=== PATIENT | female | born 1955 | race Caucasian/White ===

== ENCOUNTER 2016-12-07 11:38 | Emergency (ER) | payer MEDICARE, MEDICAID ==
[2016-12-07 11:46] VITALS: BP 150/96
[2016-12-07] MEDS ORDERED: Albuterol/Ipratropium NEB.SOL* Albuterol 2.5 MG/Ipratropium 0.5 MG 3 ML INH ONE (12:06)
[2016-12-07] MEDS ORDERED: predniSONE TAB* 20 MG PO ONE (12:06)
--- NOTE | 2016-12-07 12:07 | UC ---
Respiratory Complaint HPI - HPI Summary HPI Summary: increase sob over the past 2 weeks has ran out of Albuterol and is between doctors right now - History of Current Complaint Chief Complaint: UCRespiratory Stated Complaint: CHRONIC BRONCHITIS Time Seen by Provider: 12/07/16 12:00 Hx Obtained From: Patient ?: No Onset/Duration: Gradual Onset, Worse Since - over the past 2 weeks Timing: Constant Severity Initially: Moderate Severity Currently: Moderate Pain Intensity: 5 Pain Scale Used: 0-10 Numeric Character: Cough: Nonproductive Aggravating Factors: Exertion, Deep Breaths, Recumbent Position Alleviating Factors: Nothing Associated Signs And Symptoms: Positive: Wheezing, URI - Allergies/Home Medications Allergies/Adverse Reactions: Allergies Allergy/AdvReac Type Severity Reaction Status Date / Time Sulfa Antibiotics Allergy unk Verified 11/19/14 10:51 Tetracycline Allergy GI Upset Verified 11/16/15 09:34 opiates Allergy Vomiting Uncoded 11/19/14 10:51 PMH/Surg Hx/FS Hx/Imm Hx Previously Healthy: No Respiratory History: COPD, Bronchitis - Surgical History Surgical History: Yes Surgery Procedure, Year, and Place: cysts removal from left breast. RIGHT leg fracture and devon placement. tonsilectomy, - Family History Known Family History: Positive: None - Social History Occupation: Employed Part-time - cashier receptionist Lives: With Family Alcohol Use: Rare Substance Use Type: None Smoking Status (MU): Heavy Every Day Tobacco Smoker Type: Cigarettes Amount Used/How Often: 1/2-3/4 pack daily Have You Smoked in the Last Year: Yes Cessation Counseling: Counseled 3+Min - 10 Min Review of Systems Constitutional: Negative Skin: Negative Eyes: Negative ENT: Negative Respiratory: Shortness Of Breath, Cough Cardiovascular: Negative Gastrointestinal: Negative Genitourinary: Negative Motor: Negative Neurovascular: Negative Musculoskeletal: Negative Neurological: Negative Psychological: Negative Is Patient Immunocompromised?: No All Other Systems Reviewed And Are Negative: Yes Physical Exam Triage Information Reviewed: Yes Appearance: No Pain Distress, Ill-Appearing - acute on chronic illness, Thin Vital Signs: Initial Vital Signs Temp 99.6 F 12/07/16 11:43 Pulse 84 12/07/16 11:43 Resp 22 12/07/16 11:43 BP 150/96 12/07/16 11:43 Pulse Ox 100 12/07/16 11:43 Vital Signs Reviewed: Yes Eye Exam: Normal Eyes: Positive: Conjunctiva Clear ENT Exam: Normal ENT: Positive: Normal ENT inspection, Hearing grossly normal, Pharynx normal, TMs normal. Negative: Nasal congestion, Nasal drainage, Tonsillar swelling, Tonsillar exudate, Trismus, Muffled/hoarse voice Dental Exam: Normal Neck exam: Normal Neck: Positive: Supple, Nontender, No Lymphadenopathy Respiratory Exam: Normal Respiratory: Positive: Chest non-tender, No accessory muscle use, Decreased breath sounds Cardiovascular Exam: Normal Cardiovascular: Positive: RRR, No Murmur, Pulses Normal, Brisk Capillary Refill Musculoskeletal Exam: Normal Musculoskeletal: Positive: Strength Intact, ROM Intact, No Edema Neurological Exam: Normal Neurological: Positive: Alert, Muscle Tone Normal Psychological Exam: Normal Skin Exam: Normal UC Diagnostic Evaluation - Laboratory O2 Sat by Pulse Oximetry: 100 Re-Evaluation - Re-Evaluation First Eval Change: Improved - feels better increased air movement-- Respiratory Course/Dx - Course Course Of Treatment: albuterol, prednisone, nicotine cesassation information, bp follow up with pcp - Differential Dx/Diagnosis Differential Diagnosis/HQI/PQRI: Bronchitis, Exacerbation Of COPD, Lower Resp Infection, Sinusitis Provider Diagnoses: Acute exacebation of chronic bronchitis, nicotine dependent , high blood pressure without diagnosis of hypertension Discharge - Discharge Plan Condition: Stable Disposition: HOME Prescriptions: Albuterol HFA INHALER* [Ventolin HFA Inhaler*] 2 puff INH Q4H PRN #1 mdi PRN Reason: cough/wheeze/chest congestion predniSONE TAB* [Deltasone TAB*] 10 mg PO DAILY #30 tab Patient Education Materials: Nicotine (By breathing), How to Use a Metered- Dose Inhaler (ED), Chronic Bronchitis (ED), Hypertension (ED) Referrals: [facility] [Outside] - 2 Weeks
== END 2016-12-07 12:52 | disposition home or self-care (01) ==
LOC: UCEAST 11:38
DX: J20.9 Acute bronchitis, unspecified (principal); Z88.2 Allergy status to sulfonamides; F17.210 Nicotine dependence, cigarettes, uncomplicated; R03.0 Elevated blood-pressure reading, without diagnosis of hypertension
CPT/HCPCS: 99212; A9270-GY; G0463; J7512

== ENCOUNTER 2017-05-21 09:54 | Emergency (ER) | payer MEDICARE, MEDICAID ==
[2017-05-21 10:11] VITALS: BP 159/77
--- NOTE | 2017-05-21 10:55 | RAD ---
HISTORY: Finger injury COMPARISONS: None VIEWS: 4, Frontal, lateral, and oblique views of the right hand FINDINGS: BONE DENSITY: Normal. BONES: There is a comminuted slightly angulated nondisplaced fracture of the proximal phalanx of the fourth digit. JOINTS: There is advanced osteoarthritis of the first CMC joint. ALIGNMENT: There is no dislocation. SOFT TISSUES: Unremarkable. OTHER FINDINGS: None. IMPRESSION: 1. COMMINUTED FRACTURE OF THE PROXIMAL PHALANX OF THE FOURTH DIGIT. 2. ADVANCED OSTEOARTHRITIS OF THE FIRST CMC JOINT.
--- NOTE | 2017-05-25 15:21 | UC ---
Velia Montoya Gabriel, scribed for Deanna Lemos DO on 05/21/17 at 1031 . Hand/Wrist HPI - HPI Summary HPI Summary: This patient is a 62 year old F presenting to [facility] with a chief complaint of right ring finger injury. Pt slipped on ice and landed on her right hand. The patient rates the pain 6/10 in severity. Symptoms aggravated by movement. Patient reports swelling and ecchymosis Patient denies elbow pain, wrist pain, head trauma, and LOC. - History Of Current Complaint Chief Complaint: UCUpperExtremity Stated Complaint: FINGER INJURY Time Seen by Provider: 05/21/17 10:12 Hx Obtained From: Patient Onset/Duration: Still Present Severity Initially: Moderate Severity Currently: Moderate Pain Intensity: 6 Pain Scale Used: 0-10 Numeric Aggravating Factor(s): Movement Associated Signs And Symptoms: Positive: Swelling, Bruising - Allergies/Home Medications Allergies/Adverse Reactions: Allergies Allergy/AdvReac Type Severity Reaction Status Date / Time Sulfa (Sulfonamide Allergy Rash Verified 05/21/17 10:08 Antibiotics) tetracycline Allergy Rash Verified 05/21/17 10:08 opiates Allergy Vomiting Uncoded 11/19/14 10:51 PMH/Surg Hx/FS Hx/Imm Hx Other History Of: Negative For: Hepatitis C, Anticoagulant Therapy - Surgical History Surgical History: Yes Surgery Procedure, Year, and Place: cysts removal from left breast. RIGHT leg fracture and devon placement. tonsilectomy, - Family History Known Family History: Positive: Cardiac Disease, Hypertension - Social History Alcohol Use: Rare Substance Use Type: None Smoking Status (MU): Heavy Every Day Tobacco Smoker Type: Cigarettes Amount Used/How Often: 1/2-3/4 pack daily Have You Smoked in the Last Year: Yes Review of Systems Musculoskeletal: Other: - pain at right hand Neurological: Negative - LOC All Other Systems Reviewed And Are Negative: Yes Physical Exam - Summary Physical Exam Summary: Appearance: Well-Appearing, No Pain Distress, Well-Nourished Eyes: conjunctiva clear, no discharge ENT: Hearing grossly normal, no muffled/hoarse voice. Hearing grossly normal, normal voice). Neck: Normal, Supple Respiratory/Lung Sounds: Lungs clear, Normal breath sounds, No respiratory distress, No accessory muscle use Cardiovascular: RRR, No murmur Abdomen (if she checks): Nontender, Soft, no guarding, not distended Bowel Sounds (if she checks): Present Musculoskeletal: there is swelling and bruising over the ulnar side of the patients hand with ROM in 4th finger that is TTP. Neurological: Alert, muscle tone normal Psychiatric: Normal, age appropriate behavior Skin: Normal, Warm, Dry, Normal color Triage Information Reviewed: Yes Vital Signs: Initial Vital Signs Temp 99 F 05/21/17 10:09 Pulse 87 05/21/17 10:09 Resp 16 05/21/17 10:09 BP 159/77 05/21/17 10:09 Pulse Ox 100 05/21/17 10:09 Vital Signs Reviewed: Yes Diagnostics - Radiology hand xray Radiology Interpretation Completed By: Radiologist - 1. COMMINUTED FRACTURE OF THE PROXIMAL PHALANX OF THE FOURTH DIGIT. 2. ADVANCED OSTEOARTHRITIS OF THE FIRST CMC JOINT. Dr. Lemos has reviewed this report. Hand/Wrist Course/Dx - Course Course Of Treatment: Hand Xray reveals, 1. COMMINUTED FRACTURE OF THE PROXIMAL PHALANX OF THE FOURTH DIGIT. 2. ADVANCED OSTEOARTHRITIS OF THE FIRST CMC JOINT. Patient will be discharged and follow up from PCP. The patient is agreeable with this plan. Medications reviewed. Allergies reviewed. High blood pressure noted. The patient has been encouraged to quit smoking. - Differential Dx/Diagnosis Provider Diagnoses: Elevated blood pressure without diagnosis of hypertension and proximal finger fracture Discharge - Discharge Plan Condition: Stable Disposition: HOME Referrals: No Primary Care Phys,NOPCP [Primary Care Provider] - Additional Instructions: Your blood pressure was elevated at this visit. That does not mean you have hypertension, it is probably due to your current condition. Please follow up with your primary care provider. The documentation as recorded by the Velia luna Gabriel accurately reflects the service I personally performed and the decisions made by , Deanna Lemos DO.
== END 2017-05-21 12:05 | disposition home or self-care (01) ==
LOC: UCEAST 09:54
DX: S62.644A Nondisplaced fracture of proximal phalanx of right ring finger, initial encounter for closed fracture (principal); W00.0XXA Fall on same level due to ice and snow, initial encounter; Y93.9 Activity, unspecified; Y92.9 Unspecified place or not applicable; M18.11 Unilateral primary osteoarthritis of first carpometacarpal joint, right hand; Z88.1 Allergy status to other antibiotic agents; Z88.5 Allergy status to narcotic agent; Z88.2 Allergy status to sulfonamides; F17.210 Nicotine dependence, cigarettes, uncomplicated
CPT/HCPCS: 99211; G0463

== ENCOUNTER 2017-05-26 09:09 | Day surgery (SDC) | payer MEDICARE, MEDICAID ==
--- NOTE | 2017-05-22 10:31 | HP ---
PREOPERATIVE HISTORY AND PHYSICAL: DATE OF ADMISSION/SURGERY: 05/26/17 [facility] DATE OF OFFICE VISIT/ENCOUNTER: 05/21/17 ATTENDING SURGEON: Cyn De La Cruz MD * (DICTATED BY WOO HERBERT) PROCEDURE: Right ring finger phalanx closed reduction, percutaneous fixation. CHIEF COMPLAINT: Right ring finger fracture. HISTORY OF PRESENT ILLNESS: This is a 62-year-old female, who sustained injury to her right ring finger when she slipped on the ice on 05/20/17. She went to [facility] the next day because of the bruising and the deformity of the ring finger. She had x-rays taken and was referred to Dr. De La Cruz for further evaluation. She has been using Tylenol PM for pain control. She is allergic to NARCOTICS. She denies any other injury. She denies any associated numbness or tingling. After review of x-rays and evaluation by Dr. De La Cruz, the patient has consented to proceed with surgical intervention at this time in the form of a right ring finger phalanx closed reduction, percutaneous fixation. PAST MEDICAL HISTORY: History of chronic bronchitis. PAST SURGICAL HISTORY: 1. Right femur intramedullary nailing in 1991. 2. . 3. Tonsillectomy. 4. Right foot surgery as a child. MEDICATIONS: Tylenol PM. ALLERGIES: OPIATES cause violent vomiting; TETRACYCLINE; SULFA ANTIBIOTICS, reaction unknown. FAMILY MEDICAL HISTORY: Heart disease and cancer. SOCIAL HISTORY: The patient is a part-time food service cashier at the [employer] She is a current smoker. She reports smoking less than a pack per day and has done so for the past 40 years. She denies illicit drug use and does drink alcohol on occasion. REVIEW OF SYSTEMS: General: Negative for fevers, chills, or night sweats. No known anesthesia problems. HEENT: Negative for headache, lightheadedness, or syncopal episodes. Integumentary: Negative for abrasions, lesions, or open wounds. Cardiothoracic: Negative for hypertension, chest pain, palpitations, or edema. Pulmonary: Negative for shortness of breath with exertion, chronic cough, COPD. GI: Negative for nausea, vomiting, diarrhea, constipation, and GERD. : Negative for nocturia, urinary frequency, urgency, history of UTIs, and kidney problems. Musculoskeletal: Positive for current complaint. Negative for chronic or intermittent back pain. Neurological: Negative for paresthesia, numbness, history of seizure, stroke, or epilepsy. Endocrine: Negative for diabetes and thyroid issues. Hematologic: Negative for easy bruising, anemia, excessive bleeding, or history of DVT. Infectious Disease: Negative for history of MRSA, hepatitis C, HIV. PHYSICAL EXAMINATION GENERAL: Well-developed, well-nourished, 62-year-old female in no acute distress. VITAL SIGNS: Height 5 feet 8 inches, weight 125 pounds, pulse rate 83, blood pressure 140/84. HEENT: Normocephalic, atraumatic. Pupils are equal, round, and reactive to light and accommodation. Extraocular movements are intact. NECK: Supple. No palpable lymph nodes. Throat is clear. PULMONARY: Lungs are clear to auscultation bilaterally. No wheezes, rales, or rhonchi. CARDIOVASCULAR: Regular rate and rhythm, S1 and S2. No murmurs, rubs, or gallops. No edema. ABDOMEN: Positive bowel sounds, soft, nontender. NEUROLOGIC: Alert and oriented x3. Cranial nerves II through XII are intact, sensation is intact to light touch. MUSCULOSKELETAL: On exam of her right hand, she has marked ecchymosis and deformity of the ring finger. There is also swelling along the ring finger and into the hand. The ecchymosis in on both the volar and dorsal aspects. She has ability to extend the finger, but when she flexes, there is a rotational deformity. Skin is intact and neurovascular function is intact. IMAGING STUDIES: X-rays, AP, lateral, and oblique, of the right ring finger show a comminuted intraarticular fracture at the base of the proximal phalanx. IMPRESSION: Right ring finger proximal phalanx fracture. PLAN: Right ring finger phalanx closed reduction, percutaneous fixation, that is what the patient is scheduled to undergo with Dr. De La Cruz on 05/26/17. She will return to the office 10 days postop for followup and suture removal. The patient plans to use [id number] medications for postoperative pain management as she is allergic to OPIATES. WOO HERBERT [id number]/[facility] #: [id number] TEJA
[~2017-05-26 09:09] MED LIST: Acetaminophen IV 1GM/100ML * 1,000 MG/100 ML VIAL IVPB ONE; Buffered Lidocaine 0.9% SYRIN* 5 ML/SYR SYRINGE INTRADERM ONE; DiMENhydriNATE IV* 50 MG/ML VIAL IV PUSH PRN; Famotidine IV* 10 MG/ML 2 ML (20 mg) IV ONE; Famotidine IV* 10 MG/ML 2 ML (20 mg) ONE; Naloxone* 0.4 MG/ML 1 ML VIAL IV PRN; PROCHLORPERAZINE INJ 5 MG/ML 2 ML VIAL IV PRN; Scopolamine 1.5 mg* PATCH ONE; Scopolamine 1.5 mg* PATCH TRANSDERM ONE
[2017-05-26] MEDS ORDERED: fentaNYL* 50 MCG/ML 2 ML VIAL (100 MCG VIAL) ONE (09:30)
[2017-05-26] MEDS ORDERED: Midazolam* 1 MG/ML 5 ML VIAL (5 MG) ONE (09:31)
[2017-05-26] MEDS ORDERED: Lidocaine 1% INJ* 10 MG/ML 30 ML SDV ONE (09:42)
[2017-05-26] MEDS ORDERED: ceFAZolin 2 GM in 100 MLS NS (*) BAG IVPB ONE (09:43)
[2017-05-26] MEDS ORDERED: Bupivacaine 0.5% SDV PF* 10-30ML VIAL ONE (10:07)
[2017-05-26] MEDS ORDERED: KETAMINE HCL* 50 MG/ML 10 ML VIAL ONE (10:10)
[2017-05-26] MEDS ORDERED: Lidocaine 2% PF * 5 ML VIAL ONE (10:29)
[2017-05-26] MEDS ORDERED: Ketorolac INJ* 30 MG/ML 1 ML VIAL ONE (10:29)
[2017-05-26] MEDS ORDERED: Dexamethasone IV* 4 MG/ML 1 ML (4 MG) ONE (10:29)
[2017-05-26] MEDS ORDERED: Propofol* 10 MG/ML 20 ML BTL IV PUSH ONE (10:29)
[2017-05-26] MEDS ORDERED: Ondansetron INJ* 2 MG/ML VIAL ONE (10:29)
[2017-05-26 10:45] VITALS: BP 118/69
--- NOTE | 2017-05-27 06:18 | OP ---
CC: Dr. De La Cruz OPERATIVE NOTE: DATE OF OPERATION: 05/26/17 DATE OF : 53 SURGEON: Dr. De La Cruz. [facility] TECHNICIAN: WOO Jarrett ANESTHESIA: Local MAC. PRE-OP DIAGNOSIS: Right ring finger proximal phalanx fracture, displaced and angulated. POST-OP DIAGNOSIS: Right ring finger proximal phalanx fracture, displaced and angulated. OPERATIVE PROCEDURE: Closed reduction of the right ring finger proximal phalanx with percutaneous pi nning. ESTIMATED BLOOD LOSS: Zero. INDICATION FOR PROCEDURE: Jesus is a 62-year-old female who fell and injured her right ring finger. It has obvious deformity and x-ray shows a comminuted fracture of the base of the proximal phalanx. She presents for closed reduction and pinning. DESCRIPTION OF PROCEDURE: The patient was brought to the operating room, was given a sedation anesth etic and a digital block with 10 cc of 1% plain lidocaine. The skin of her right hand and forearm wa s prepped and draped in the usual sterile fashion. With traction and manipulation, the fracture was reduced and then secured with two 0.045-inch K-wire and one 0.035-inch K-wire driven through the 2 pr oximal fragments and into the center of the shaft of the proximal phalanx. The position of the hardw are and fracture fragments was checked on the C-arm in the AP and lateral views and clinically the fi nger was in much better position. The pins were bent and cut and pin caps were placed and then dress ed with Xeroform, 4 x 4, Webril, and an ulnar gutter splint. The patient tolerated the procedure wel l and was brought to the recovery room in good condition. [id number]/[facility] #: [id number]
--- NOTE | 2017-05-27 12:56 | RAD ---
INDICATION: Right ring finger proximal phalanx close reduction, percutaneous fixation. COMPARISON: Comparison is made with a prior x-ray study of the right hand from May 21, 2017. TECHNIQUE: 1 minute and 34 seconds of intermittent fluoroscopic guidance were provided and 3 spot films of the right ring finger were obtained in the operating room. FINDINGS: The films demonstrate placement of 3 K wires spanning the transverse comminuted fracture of the proximal phalanx. IMPRESSION: INTRAOPERATIVE CONTROL FILMS. CPT II Codes: 6045F
[2017-05-29] MEDS ORDERED: Scopolamine PATCH Remove* 1 NOTE MISC PATCH OFF ONE (06:00)
== END 2017-05-26 11:10 | disposition home or self-care (01) ==
LOC: OREAST 09:09
PROVIDERS: ATTEND Orthopaedic Surgery
DX: S62.615A Displaced fracture of proximal phalanx of left ring finger, initial encounter for closed fracture (principal); F17.210 Nicotine dependence, cigarettes, uncomplicated; Z88.1 Allergy status to other antibiotic agents; Z88.2 Allergy status to sulfonamides; Z88.8 Allergy status to other drugs, medicaments and biological substances; Z82.49 Family history of ischemic heart disease and other diseases of the circulatory system; W00.0XXA Fall on same level due to ice and snow, initial encounter
CPT/HCPCS: 76001; A9270-GY; C1776; J1100; J1885; J2250; J2405; J2704; J3010

== ENCOUNTER 2017-12-18 15:45 | Emergency (ER) | payer MEDICARE, MEDICAID ==
[2017-12-18 15:56] VITALS: BP 140/80
--- NOTE | 2017-12-18 16:13 | UC ---
Throat Pain/Nasal Cole HPI - HPI Summary HPI Summary: Patient presents with 2 weeks of progressive head cold that settled in her chest. Patient reports she's got an ongoing cough with productive of green thick sputum. Patient states intermittently feels wheezing. Patient denies fevers reports she feels fatigued. Patient denies ear pain. Patient states has some mild sinus congestion that improved. No sore throat. No chest pain. No abdominal pain. No nausea vomiting but notes a decreased appetite. Patient states she's taken multiple [id number] products including Mucinex, Tylenol Sinus, and NyQuil with short-term relief. Patient does smoke half pack of cigarettes a day. Patient does not have a PCP. Patient never been hospitalized for breathing or COPD. Patient's medications reviewed this visit - History of Current Complaint Chief Complaint: UCGeneralIllness Stated Complaint: RUNNY NOSE, AND A BAD COUGH Time Seen by Provider: 12/18/17 16:00 Hx Obtained From: Patient Onset/Duration: Gradual Onset, Lasting Weeks Severity: Moderate Pain Intensity: 4 Pain Scale Used: 0-10 Numeric Cough: Productive - Allergies/Home Medications Allergies/Adverse Reactions: Allergies Allergy/AdvReac Type Severity Reaction Status Date / Time Adhesive Tape Allergy Severe blisters, Verified 12/18/17 15:56 rash Sulfa (Sulfonamide Allergy Severe Rash Verified 12/18/17 15:56 Antibiotics) tetracycline Allergy Severe Rash Verified 12/18/17 15:56 opiates AdvReac Severe Vomiting Uncoded 12/18/17 15:56 PMH/Surg Hx/FS Hx/Imm Hx Previously Healthy: Yes - Surgical History Surgical History: Yes Surgery Procedure, Year, and Place: cysts removal from left breast. RIGHT leg fracture and devon placement. tonsilectomy, . right foot sever injury when 3 years old- reattache right foot. right 4th finger surgery 05/2017 - Family History Known Family History: Positive: None - Social History Alcohol Use: Weekly Alcohol Amount: 3 coctails a week Substance Use Type: None Smoking Status (MU): Heavy Every Day Tobacco Smoker Type: Cigarettes Amount Used/How Often: 1/2-3/4 pack daily, smoked over 40 years Have You Smoked in the Last Year: Yes Review of Systems Constitutional: Fatigue, Other - decreased appetitie Respiratory: Shortness Of Breath, Cough All Other Systems Reviewed And Are Negative: Yes Physical Exam - Summary Physical Exam Summary: Vital Signs Reviewed: Yes A+Ox3, no distress, coarse cough Eyes: Conjunctiva Clear, MIK. EOM intact and full ENT: Hearing grossly normal TM x 2 clear, mmoist, turbinates inflammed and boggy, + PND, uvula midline, no exudate, no erythema Neck: Positive: Supple Respiratory: coarse cough intermittent, scattered wheeze. + BS throughout speaking full, easy sentences. No w/r Cardiovascular: RRR nl s1, s2 no m/r CBT <2 sec abd soft + BS nt/nd no guarding, no distension Musculoskeletal Exam: BARNES x 4 without difficulty Strength Intact, ROM Intact Neurological: Positive: Alert, + sensation throughout Psychological: Positive: Normal Response To Family Skin: Positive: no rash, no ecchymosis Triage Information Reviewed: Yes Vital Signs: Initial Vital Signs Temp 97.4 F 12/18/17 15:51 Pulse 82 12/18/17 15:51 Resp 18 12/18/17 15:51 BP 140/80 12/18/17 15:51 Pulse Ox 97 12/18/17 15:51 Throat Pain/Nasal Course/Dx - Course Course Of Treatment: Patient presents to urgent care reporting 2 weeks of head cold has settled in her chest. Patient states productive cough, wheeze with progressively green sputum. On exam, VS reviewed. Pt with scattered wheeze. Pt states she doesn't like nebulizer because doesn't work. Declined neb here. Rx prednisone. Augmenting. MDI with spacer. secretion precaution. physician referral center - borderline BP - recommend PCP f/u and decreased cigarette use - Differential Dx/Diagnosis Provider Diagnoses: acute bronchitis Discharge - Sign-Out/Discharge Documenting (check all that apply): Patient Departure All imaging exams completed and their final reports reviewed: No Studies - Discharge Plan Condition: Stable Disposition: HOME Prescriptions: Albuterol HFA INHALER* [Ventolin HFA Inhaler*] 1 puff INH Q4H PRN #1 mdi PRN Reason: wheeze Amoxicillin/Clavulanate TAB* [Augmentin TAB 875*] 875 mg PO BID #20 tab Inhaler, Assist Devices [Aerochamber Mv] 1 each MC Q4HR PRN #1 spacer PRN Reason: wheeze predniSONE TAB* [Deltasone TAB*] 50 mg PO DAILY #5 tab Patient Education Materials: Acute Bronchitis (ED) Referrals: [facility] [Outside] No Primary Care Phys,NOPCP [Primary Care Provider] - Additional Instructions: - Take antibiotics exactly as prescribed until gone - Take prednisone daily as prescribed -Use your albuterol puffer - 2 puffs ever 4 hours for the next 2 days - then as needed - it is recommended you use spacer with this inhaler -Stay well hydrated - avoid excess caffeine and all alcohol - eat regular, healthy meals - work to decrease cigarette smoke -You are being referred to the physician referral center - this office will assist you in finding a new primary care provider - contact your doctor or return with questions or concerns - Billing Disposition and Condition Condition: STABLE Disposition: Home
== END 2017-12-18 16:43 | disposition home or self-care (01) ==
LOC: UCEAST 15:45
DX: J20.9 Acute bronchitis, unspecified (principal); F17.210 Nicotine dependence, cigarettes, uncomplicated; Z88.2 Allergy status to sulfonamides; Z91.09 Other allergy status, other than to drugs and biological substances; Z88.8 Allergy status to other drugs, medicaments and biological substances
CPT/HCPCS: 99212; G0463